=== PATIENT | female | born 1995 | race Two or more races ===

== ENCOUNTER 2019-09-10 05:29 | Emergency (ER) | payer OTHER ==
[~2019-09-10] VITALS: Ht 175.3 cm; Wt 97.5 kg
[2019-09-10] MEDS ORDERED: methylPREDNISolone SOD SUCC 125 MG/2 ML VL IM ONE (07:15)
[2019-09-10] MEDS ORDERED: cefTRIAXone SOD 1,000 MG VL IM ONE (07:15)
[2019-09-10 07:27] VITALS: BP 122/81
== END 2019-09-10 07:55 | disposition home or self-care (01) ==
LOC: ER 05:29
DX: J03.90 Acute tonsillitis, unspecified (principal)
CPT/HCPCS: 96372; 99284; J0696; J2930